=== PATIENT | female | born 1950 | race Two or more races ===

== ENCOUNTER 2019-11-11 11:15 | Emergency (ER) | payer MEDICARE ==
[~2019-11-11] VITALS: Ht 161.3 cm; Wt 116.2 kg
[2019-11-11 11:24] VITALS: BP 165/69
== END 2019-11-11 13:33 | disposition home or self-care (01) ==
LOC: ED 13:28
DX: S09.90XA Unspecified injury of head, initial encounter (principal); J45.909 Unspecified asthma, uncomplicated; Z87.891 Personal history of nicotine dependence; W18.09XA Striking against other object with subsequent fall, initial encounter; Y93.89 Activity, other specified; Y92.098 Other place in other non-institutional residence as the place of occurrence of the external cause; Y99.8 Other external cause status
CPT/HCPCS: 70450; 99284